=== PATIENT | male | born 1975 | race Caucasian/White ===

== ENCOUNTER 2019-04-30 13:07 | Emergency (ER) | payer SELFPAY ==
[~2019-04-30] VITALS: Ht 167.6 cm; Wt 87.5 kg
[2019-04-30 13:22] VITALS: Ht 167.6 cm; Wt 87.5 kg
[2019-04-30] MEDS ORDERED: morphine 4 MG/ML VIAL IV STA (13:59)
[2019-04-30] MEDS ORDERED: SOD CHLORIDE 0.9% 1,000 ML IV STA (13:59)
--- NOTE | 2019-04-30 14:08 | ERD ---
ER Documentation Chief Complaint Chief Complaint lower abdominal pain x3 days, seen & sent by clinic HPI 43-year-old male presenting with right lower quadrant abdominal pain for the past 3 days. Initially the pain was intermittent but now it is constant. Pain is aching, radiating to the right flank. He had one episode of "dark" urine but denies any blood in his urine. No dysuria. No associated fever, chills, nausea, vomiting, constipation, hematochezia or melena. He does have a remote history of kidney stones but he states it never felt like this. ROS All systems reviewed and are negative except as per history of present illness. Medications Home Meds Active Scripts Tamsulosin Hcl* (Flomax*) 0.4 Mg Cap.er.24h, 0.4 MG PO QPM, #30 CAP Prov:TRENT ALEXANDER MD 04/30/19 Hydrocodone/Acetaminophen ([place] 5-325 Tablet) 1 Each Tablet, 1 TAB PO Q6H PRN for SEVERE PAIN LEVEL 7-10, #7 TAB Prov:TRENT ALEXANDER MD 04/30/19 Ibuprofen* (Motrin*) 600 Mg Tab, 600 MG PO Q6H PRN for PAIN AND OR ELEVATED TEMP, #30 TAB Prov:TRENT ALEXANDER MD 04/30/19 Allergies Allergies: Coded Allergies: No Known Allergy (Unverified , 04/30/19) PMhx/Soc History of Surgery: Yes (Colonoscopy (negative)) Anesthesia Reaction: No Hx Neurological Disorder: No Hx Respiratory Disorders: No Hx Cardiac Disorders: No Hx Psychiatric Problems: No Hx Miscellaneous Medical Probl: Yes (High cholesterol in 2014-, swollen prostate 2017) Hx Alcohol Use: Yes (once every few months) Hx Substance Use: No Hx Tobacco Use: Yes (Quit 2009) Smoking Status: Former smoker FmHx Family History: No diabetes Physical Exam Vitals Vital Signs Date Temp Pulse Resp B/P (MAP) Pulse Ox O2 O2 Flow FiO2 Time Delivery Rate 04/30/19 97.7 84 18 119/81 100 Room Air 16:41 (94) 04/30/19 97.7 67 18 147/100 100 Room Air 13:55 (116) 04/30/19 97.7 68 18 142/83 98 13:22 (102) Physical Exam Const: No acute distress Head: Atraumatic Eyes: Normal Conjunctiva ENT: Normal External Ears, Nose and Mouth. Neck: Full range of motion. No meningismus. Resp: Clear to auscultation bilaterally Cardio: Regular rate and rhythm, no murmurs Abd: Abdominal wall normal without bruising or hernias. Soft, right mid abdomen and lower quadrant tender to deep palpation without rebound or guarding. No McBurney's point tenderness. Negative Carballo sign.non distended. Normal bowel sounds Skin: No petechiae or rashes Back: No midline or flank tenderness Ext: No cyanosis, or edema Neur: Awake and alert Psych: Normal Mood and Affect Result Diagram: 04/30/19 1418 04/30/19 1418 Results 24 hrs Laboratory Tests Test 04/30/19 14:18 04/30/19 15:15 White Blood Count 13.5 10^3/ul Red Blood Count 5.16 10^6/ul Hemoglobin 15.8 g/dl Hematocrit 47.2 % Mean Corpuscular Volume 91.5 fl Mean Corpuscular Hemoglobin 30.6 pg Mean Corpuscular Hemoglobin Concent 33.5 g/dl Red Cell Distribution Width 12.2 % Platelet Count 280 10^3/UL Mean Platelet Volume 10.4 fl Immature Granulocytes % 0.400 % Neutrophils % 79.9 % Lymphocytes % 9.7 % Monocytes % 8.8 % Eosinophils % 0.7 % Basophils % 0.5 % Nucleated Red Blood Cells % 0.0 /100WBC Immature Granulocytes # 0.050 10^3/ul Neutrophils # 10.8 10^3/ul Lymphocytes # 1.3 10^3/ul Monocytes # 1.2 10^3/ul Eosinophils # 0.1 10^3/ul Basophils # 0.1 10^3/ul Nucleated Red Blood Cells # 0.0 10^3/ul Sodium Level 142 mmol/L Potassium Level 4.8 mmol/L Chloride Level 102 mmol/L Carbon Dioxide Level 29 mmol/L Anion Gap 11 Blood Urea Nitrogen 17 mg/dl Creatinine 1.01 mg/dl Est Glomerular Filtrat Rate mL/min > 60 mL/min Glucose Level 105 mg/dl Calcium Level 9.9 mg/dl Creatine Kinase 65 IU/L Urine Color YELLOW Urine Clarity CLEAR Urine pH 7.0 Urine Specific [place] 1.013 Urine Ketones NEGATIVE mg/dL Urine Nitrite NEGATIVE mg/dL Urine Bilirubin NEGATIVE mg/dL Urine Urobilinogen NEGATIVE mg/dL Urine Leukocyte Esterase NEGATIVE Bart/ul Urine Microscopic RBC 140 /HPF Urine Microscopic WBC 2 /HPF Urine Hemoglobin 3+ mg/dL Urine Glucose NEGATIVE mg/dL Urine Total Protein NEGATIVE mg/dl Current Medications Medications Dose Sig/Jaime Start Time Status Last (Trade) Ordered Route PRN Stop Time Admin Dose Reason Admin Sodium 1,000 ml @ Q1H STAT 04/30/19 DC 04/30/19 Chloride 1,000 mls/hr IV 13:59 14:23 04/30/19 14:58 Morphine 4 mg ONCE STAT 04/30/19 DC 04/30/19 Sulfate IV 13:59 14:23 (morphine) 04/30/19 14:00 Procedures/MDM EMERGENT LABS AND DIAGNOSTIC STUDIES: Lab Results above were reviewed and interpreted by me. CBC: Mild leukocytosis, likely stress response, doubt infection BMP: [no e/o clinically significant electrolyte abnormality severe acidosis, alkalosis, renal failure, diabetic ketoacidosis] UA: no evidence of infection. Positive for blood CK within normal limits, no evidence of rhabdomyolysis Radiology Results as interpreted by Radiology below were reviewed by Dawood Alexander MD: CT abdomen and pelvis: IMPRESSION: 1. 5 mm obstructive calculus at the right ureteropelvic junction resulting in moderate right hydronephrosis. 2. Additional bilateral nonobstructive intrarenal calculi. Initial Nursing notes reviewed. Previous Medical Records requested via the Electronic Health Record. EMERGENCY DEPARTMENT COURSE / MEDICAL DECISION MAKING: Patient is presenting with right lower abdominal pain for which she was given pain medications with relief. He is afebrile and hemodynamically stable. Work- up shows evidence of a 5 mm obstructing right-sided kidney stone that is likely causing his pain. Prescription for analgesics and tamsulosin given. Follow-up with urology recommended as there is a chance he may not pass the stone due to its size. Patient's pain is well controlled. He does not require admission at this time. No evidence of associated UTI. All questions were answered. Return precautions discussed. Patient's blood pressure was elevated (>120/80) but appears stable without evidence of hypertensive emergency or urgency. The patient was counseled about the risks of hypertension and urged to pursue outpatient monitoring and therapy within a week with their primary care physician. Departure Diagnosis: Primary Impression: Kidney stone on right side Additional Impression: Hydronephrosis Hydronephrosis type: with ureteral calculous obstruction Qualified Codes: N13.2 - Hydronephrosis with renal and ureteral calculous obstruction Condition: Stable TRENT ALEXANDER MD Apr 30, 2019 14:08
[2019-04-30] MEDS ORDERED: IBUP-1542 PO (15:54)
[2019-04-30] MEDS ORDERED: HYDR-4011 PO (15:54)
[2019-04-30] MEDS ORDERED: TAMS-14 PO (15:54)
[2019-04-30 16:41] VITALS: BP 119/81; PULSE 84; RESP 18
== END 2019-04-30 17:11 | disposition home or self-care (01) ==
LOC: E/R 13:07
DX: N20.0 Calculus of kidney (principal); N13.2 Hydronephrosis with renal and ureteral calculous obstruction; Z87.891 Personal history of nicotine dependence
CPT/HCPCS: 36415; 74176; 80048; 81001; 82550; 85025; 96374; 99285; J2270; J7030